=== PATIENT | female | born 1990 | race African-American/Black ===

== ENCOUNTER 2017-11-01 21:48 | Emergency (ER) | payer OTHER ==
[2017-11-01 22:46] LABS: Bilirubin Negative (Negative); Blood, Urine Small (Negative); Clarity CLOUDY (Clear); Glucose, Urine (Dipstick) Negative (Negative); Leukocyte Negative (Negative); Nitrite Negative (Negative); Protein, Urine (Dipstick) Negative (Neg-Trace); Specific Gravity, Urine 1.017 (1.002-1.036); Urobilinogen 0.2 mg/dL (0.2-1.0)
[2017-11-01 22:47] LABS: Pregnancy Test - Urine (BHCG) Negative (Negative); Pregu Control Background? CLEAR/WHITE (CLR/WHITE); Pregu Control Bar Appear? YES (CONTROL BAR); Specific Gravity 1.017 (1.002-1.036)
[2017-11-01 22:48] LABS: Bacteria/HPF Rare-Few HPF (None Seen); Hyaline Casts/LPF 0-3 HYALINE CAST LPF (0-3 Hyaline)
== END 2017-11-01 23:18 | disposition home or self-care (01) ==
LOC: ERS 21:48
DX: R19.7 Diarrhea, unspecified (principal); R25.2 Cramp and spasm; R11.0 Nausea; E66.9 Obesity, unspecified
CPT/HCPCS: 81003; 81015; 81025; 99284